=== PATIENT | male | born 1965 | race Caucasian/White ===

== ENCOUNTER 2022-06-06 16:09 | Outpatient (CLI) | payer OTHER, SELFPAY ==
[2022-06-06 21:57] LABS: Thyroid Stimulating Hormone* 0.922 uIU/mL (0.270-4.20)
== END 2022-06-06 16:10 | disposition home or self-care (01) ==
LOC: LKVREF 16:10
PROVIDERS: PCP Family Medicine; Visit Provider Family Medicine
DX: I10 Essential (primary) hypertension (principal); R42 Dizziness and giddiness; R73.03 Prediabetes
CPT/HCPCS: 84443

== ENCOUNTER 2022-08-16 12:45 | Outpatient (CLI) | payer OTHER, SELFPAY ==
--- NOTE | 2022-08-16 13:00 | CRLHL7_ITS ---
For Patients: As a result of the Century Cures Act, medical imaging exams and procedure reports are released immediately into your electronic medical record. You may view this report before your referring provider. If you have questions, please contact your health care provider. INDICATION: Headaches. Blurred vision. Fogginess. TECHNIQUE: Multiplanar multisequence noncontrast MR images acquired through the brain. COMPARISON: None. FINDINGS: The ventricles and sulci are within normal limits for patient age. No mass effect or midline shift. No parenchymal signal abnormalities. No intracranial hemorrhage or pathologic extra-axial fluid collection. No diffusion restriction to suggest acute infarction. The major arterial flow voids of the skullbase are preserved. The globes are symmetric. Small right maxillary sinus retention cyst or polyp. Minimal paranasal sinus mucosal thickening. Trace mastoid fluid bilaterally. IMPRESSION: Unremarkable noncontrast MRI of the brain. Dictated by Davis Knapp MD @ 08/16/2022 3:40:50 PM (Electronically Signed)
--- NOTE | 2022-08-16 14:00 | CRLHL7_ITS ---
For Patients: As a result of the Century Cures Act, medical imaging exams and procedure reports are released immediately into your electronic medical record. You may view this report before your referring provider. If you have questions, please contact your health care provider. CLINICAL HISTORY: FAMILY HISTORY OF CAROTID ARTERY DISEASE, HEADACHES, FOGGINESS TECHNIQUE: The carotid circulations and the vertebral arteries in the neck were examined with luong-scale ultrasound, color-flow and Doppler spectral analysis. Degrees of stenosis were determined using SRU 2002 Consensus Panel Criteria. FINDINGS: Sonographic images demonstrate no evidence of atherosclerotic plaque formation or suspicious soft tissue mass. There was antegrade blood flow demonstrated within the vertebral arteries and the subclavian arteries demonstrated a normal triphasic waveform. The spectral Doppler tracings of the common carotid, internal and external carotid arteries demonstrate no abnormal turbulence or spectral broadening. There was no significant elevation of peak systolic blood flow which would indicate a hemodynamically-significant stenosis by SRU criteria. The ICA/CCA peak systolic velocity ratio measures 1.2 on the right and 1.0 on the left. IMPRESSION: Normal carotid ultrasound. Dictated by Alex Lindsey MD @ 08/17/2022 6:38:52 AM (Electronically Signed)
== END 2022-08-16 12:46 | disposition home or self-care (01) ==
PROVIDERS: PCP Family Medicine; Visit Provider Family Medicine
DX: R51.9 Headache, unspecified (principal); H53.8 Other visual disturbances; Z86.79 Personal history of other diseases of the circulatory system
CPT/HCPCS: 70551; 93880

== ENCOUNTER 2023-01-19 08:10 | Outpatient (CLI) | payer OTHER, SELFPAY | END 2023-01-19 08:11 | disposition home or self-care (01) | PROVIDERS: PCP Family Medicine; Visit Provider Family Medicine | DX: Z00.00 Encounter for general adult medical examination without abnormal findings (principal); R79.89 Other specified abnormal findings of blood chemistry; E11.9 Type 2 diabetes mellitus without complications; R73.03 Prediabetes; I10 Essential (primary) hypertension; M10.9 Gout, unspecified; E66.9 Obesity, unspecified; Z13.6 Encounter for screening for cardiovascular disorders | CPT/HCPCS: 80053; 80061; 82043; 82570; 84153; 84270; 84402; 84403; 84550; 86140 ==

== ENCOUNTER 2023-02-15 08:17 | Outpatient (RCR) | payer OTHER, SELFPAY ==
--- NOTE | 2023-02-13 13:59 | W.PM.STED ---
Stress Test Note Date Date of test: 02/13/23 Providers Primary care provider: Momo Perez Stress test physician: Juarez Hook Stress Test Note Stress test ordered: Exercise Stress Test Indication for test: Bradycardia Results discussion: Patient is a very nice 44-year-old gentleman who presents the above test after discussion of this and explaining the risks benefits and side effects of the testing like to proceed cardiac stress test medical history form is reviewed. Pretest EKG is reviewed, rhythm shows sinus bradycardia, with a ventricular rate of 41 blood pressure 100/60. Patient is exercised for a total time of 9 minutes 35 seconds, achieved a metabolic equivalent of 11.1 Mets with a maximum heart rate of 154, test is terminated because of fulfillment of protocol, and leg discomfort. He had no subjective symptoms of anginal or anginal equivalent. Review of the tracing shows some mild T-wave irregularities but no specific ST wave changes suggestive of ischemia, occasional PVCs wrist shown, any recovered normally. Conditioning was felt to be moderate Impression: Negative electrographic stress test Follow up suggested: Follow-up with provider is suggested, this test is negative, further delineation is needed, stress echo was suggested, patient left this testing facility in good condition.
[2023-02-15 09:10] VITALS: BP 135/82; PULSE 76; RESP 16
[2023-02-15] MEDS: REGADENOSON 0.4 MG/5 ML SYRINGE IVP (09:12)
[2023-02-15] MEDS: SODIUM CHLORIDE 0.9 % (FLUSH) 10 ML SYRINGE IVF (09:13)
--- NOTE | 2023-02-15 09:47 | P.STN_ITS ---
Stress Test Note Date Date Seen: 02/15/23 Date of test: 02/15/23 Providers Primary care provider: Momo Perez Stress test physician: January Hutson Stress Test Note Stress test ordered: Lexiscan Indication for test: Dyspnea Stress test medicine: Lexiscan Results discussion: Resting EKG: Sinus rhythm, 69 beats per minute. PAC seen isolated flipped T- waves lead V1. No ST segment changes baseline. Resting blood pressure: 117/79 Stress test: Patient had a walking Lexiscan. He felt dizziness/lightheadedness with the test but had no significant increase in his dyspnea, no chest pain or discomfort. No concerning EKG changes noted on monitoring, no arrhythmia. Patient will complete his post stress imaging and discharge to home. Impression: Subjectively negative, objectively negative EKG portion of this Lexiscan. Follow up suggested: Await nuclear images to be read to couple this report for a full formal diagnostic. He should hear from ordering physician once results are back.
== END 2023-02-27 23:59 | disposition home or self-care (01) ==
LOC: STRESS 08:17
PROVIDERS: PCP Family Medicine; Visit Provider Family Medicine
DX: R06.09 Other forms of dyspnea (principal); R42 Dizziness and giddiness
CPT/HCPCS: 78452; 93016; 93017; A9500; J2785

== ENCOUNTER 2023-03-16 09:44 | Outpatient (CLI) | payer OTHER, SELFPAY | END 2023-03-16 09:45 | disposition home or self-care (01) | PROVIDERS: PCP Family Medicine; Visit Provider Family Medicine | DX: I10 Essential (primary) hypertension (principal); K85.90 Acute pancreatitis without necrosis or infection, unspecified | CPT/HCPCS: 80053; 82150; 83690 ==

== ENCOUNTER 2023-04-03 18:06 | Outpatient (CLI) | payer OTHER, SELFPAY ==
--- NOTE | 2023-04-03 18:00 | CRLHL7_ITS ---
For Patients: As a result of the Century Cures Act, medical imaging exams and procedure reports are released immediately into your electronic medical record. You may view this report before your referring provider. If you have questions, please contact your health care provider. INDICATION: Leg pain and swelling. TECHNIQUE: Ultrasound venous duplex lower right extremity. Compression venous exam was performed using luong-scale, color Doppler, and spectral Doppler analysis. COMPARISON: None. FINDINGS: Deep veins: Sonographic imaging demonstrates the right common femoral, deep femoral, superficial femoral, popliteal, posterior tibial and the contralateral right common femoral veins to be fully compressible with normal color Doppler blood flow. Superficial veins: Greater saphenous vein is fully compressible. No popliteal cyst. IMPRESSION: Normal right lower extremity venous ultrasound, no sign of deep venous thrombosis. Dictated by Cyrus Larkin MD @ 04/03/2023 7:53:24 PM (Electronically Signed)
== END 2023-04-03 18:07 | disposition home or self-care (01) ==
PROVIDERS: PCP Family Medicine; Visit Provider Nurse Practitioner Family
DX: M79.604 Pain in right leg (principal); R22.41 Localized swelling, mass and lump, right lower limb
CPT/HCPCS: 83735; 93971

== ENCOUNTER 2023-05-08 10:30 | Outpatient (RCR) | payer OTHER, SELFPAY | END 2023-05-18 17:06 | disposition home or self-care (01) | PROVIDERS: PCP Family Medicine; Visit Provider Family Medicine | DX: G83.4 Cauda equina syndrome (principal); M21.371 Foot drop, right foot; Z51.89 Encounter for other specified aftercare | CPT/HCPCS: 97110; 97140; 97162 ==

== ENCOUNTER 2023-05-10 09:20 | Outpatient (CLI) | payer OTHER, SELFPAY ==
--- NOTE | 2023-05-10 09:45 | CRLHL7_ITS ---
For Patients: As a result of the Century Cures Act, medical imaging exams and procedure reports are released immediately into your electronic medical record. You may view this report before your referring provider. If you have questions, please contact your health care provider. DIGITAL DIAGNOSTIC BILATERAL MAMMOGRAM USING TOMOSYNTHESIS AND COMPUTER-AIDED DETECTION CLINICAL HISTORY: BILATERAL breast pain. COMPARISON: 01/08/2017. TECHNIQUE: Digital BILATERAL mammogram in four projections. Tomosynthesis and CAD utilized. BREAST COMPOSITION: There are areas of scattered fibroglandular density. FINDINGS: 3D CC/MLO BILATERAL mammogram images submitted. No suspicious masses or architectural distortion. No suspicious calcifications or adenopathy. IMPRESSION: BILATERAL diffuse gynecomastia. No suspicious findings. RECOMMENDATIONS: Clinical follow-up. Results and recommendations discussed with the patient. BI-RADS Category 2: Benign A lay language report of this examination will be provided to the patient. Dictated by Alex Lindsey MD @ 05/10/2023 10:48:23 AM jj/Dictated by: Alex Lindsey MD @ 05/10/2023 10:48:00 AM (Electronically Signed)
== END 2023-05-10 09:21 | disposition home or self-care (01) ==
LOC: MAMMO 09:21
PROVIDERS: PCP Family Medicine; Visit Provider Surgery
DX: N62 Hypertrophy of breast (principal)
CPT/HCPCS: 77066; G0279